=== PATIENT | female | born 1940 | race Caucasian/White ===

== ENCOUNTER 2018-03-18 13:15 | Observation (INO) ==
[2018-03-18 14:01] LABS: Basophils # 0.1 K/mcL (0.0-0.2); Basophils % 0.4 %; Eosinophils # 0.1 K/mcL (0.0-0.6); Eosinophils % 0.4 %; Hematocrit 47.7 % (35.3-44.9); Immature Granulocytes % 0.2 % (0-4); Lymphocytes # 2.1 K/mcL (0.6-4.6); Lymphocytes % 17.2 %; Mean Corpuscular HGB Conc 33.5 g/dL (31.6-35.5); Mean Corpuscular Hemoglobin 29.4 pg (28.0-33.3); Mean Corpuscular Volume 87.7 fL (83.0-100.0); Mean Platelet Volume 9.5 fL (9.4-12.4); Monocytes # 1.3 K/mcL (0.0-1.3); Monocytes % 10.7 %; Neutrophils # 8.7 K/mcL (1.6-8.9); Platelet Count 270 K/mcL (140-400); Red Blood Count 5.44 M/mcL (3.82-4.97); Red Cell Distribution Width 13.6 % (11.5-14.5); Segmented Neutrophils % 71.1 %
[2018-03-18 14:21] LABS: BUN/Creatinine Ratio 14 (6-26); Blood Urea Nitrogen 13 mg/dL (8-23); Calcium 9.6 mg/dL (8.6-10.3); Carbon Dioxide 27 mEq/L (23-29); Chloride 102 mEq/L (98-107); Glucose 158 mg/dL (70-105); Osmolality,Calculated 287 (280-300); Potassium 3.7 mEq/L (3.5-5.1); Sodium 137 mEq/L (136-145); eGFR For African Americans > 60 (> 60); eGFR For Non-African Americans > 60 (> 60)
[2018-03-18] MEDS ORDERED: Isovue-370 500 ML INFUS..BTL IV ONE (15:17)
--- NOTE | 2018-03-18 15:37 | Emergency Department Note ---
Disposition Clinical Impression: Lower abdominal pain, Colitis GI bleed Qualifiers: GI bleed type/associated pathology: unspecified gastrointestinal hemorrhage type Qualified Code(s): K92.2 - Gastrointestinal hemorrhage, unspecified Syncope Qualifiers: Syncope type: unspecified Qualified Code(s): R55 - Syncope and collapse Disposition: Admitted As Inpatient Condition: Good Time of Disposition: 20:15 GI Bleed HPI - General Chief complaint: ED GI Bleed Stated complaint: syncope, blood in stools Time Seen by Provider: 03/18/18 14:44 Nursing Notes Reviewed: Yes Vital Signs Reviewed: Yes - History of Present Illness HPI Narrative: 77-year-old female presents from home for evaluation of bleeding per rectum. Onset yesterday. She has had both spotting on the toilet paper as well as blood in her underwear and blood in the toilet bowl water. She notes intermittent lower abdominal cramping as well. She notes that she has been constipated but has not had a recent bowel movement. Her most recent bowel movements, however, were painless. Yesterday, she had a syncopal episode after standing up from the toilet. She lost consciousness and believes that she hit her head. PMH: CAD with ACS status post remote stent. Diabetes type 2. Abdominal surgical history: Remote hysterectomy. Anticoagulant: None Antiplatelet: Noncompliant with aspirin 81 mg by mouth daily. ROS: Positive: As above Negative: Fever, chills, nausea, vomiting, chest pain, palpitation, other abdominal pain, dysuria, vaginal bleeding, lightheadedness, neck pain, changes in vision, confusion, unilateral numbness/tingling/weakness. - Related Data Allergies Allergy/AdvReac Type Severity Reaction Status Date / Time No Known Allergies Allergy Verified 11/02/16 12:35 All systems ED: reviewed and negative except as stated. Review of Systems: As Per HPI Past Medical History - Past Medical History Medical history: Reports: diabetes, hypertension Psychiatric history: Reports: no psych history - Social History Smoking Status: Former smoker Smokeless Tobacco Status: No Alcohol use: Reports: none Drug use: Reports: none Physical Exam Vital Signs Reviewed General: Patient is alert, oriented, and in no acute distress. Head: atraumatic, normocephalic Eye: normal appearance, PERRL, EOMI, no scleral icterus, no conjunctival injection ENT: mucous membranes moist, normal external ear exam Neck: normal inspection, trachea midline, full ROM Chest: normal inspection, symmetric chest rise Respiratory: Good respiratory effort. Bilateral breath sounds are clear without wheezing, crackles, or rhonchi. Cardiovascular: Regular rate and rhythm. No clicks, rubs, gallops, or murmors. Normal heart sounds. Bilateral radial and posterior tibial pulses 2/4 equal. Abdomen: Bowel sounds present normoactive x-4 quadrants. Abdomen is soft, nondistended, and nontender. No guarding or rebound. No organomegaly noted. Echo exam: Medical Staff Credentialing Coordinator present. Prominent hemorrhoid present perirectally. Nose stool in rectal vault. FOBT submitted. Musculoskeletal: Spontaneously moving all extremities. No midline cervical spinous process tenderness. Skin: warm, dry, intact. Neuro: Alert and oriented x4. Sensation light touch intact and equal bilaterally. Strength 5/5 and equal in upper and lower extremity is. Psych: Patient's affect is appropriate for situation. Course Course Narrative: Patient is neurologically intact. Have low suspicion for intracranial abnormality. Even so, because it was a unwitnessed fall from sitting with positive loss of conscious, we will CT head and C-spine. Patient never had a colonoscopy. She does have lower abdominal cramping. Will CT abdomen pelvis without contrast. Because patient was syncopal, will also add EKG and chest x- ray as well as cardiac enzymes. CT head and C-spine show no acute abnormalities. Chest x-ray shows mild bibasilar atelectasis. EKG is unremarkable. Laboratory workup shows patient is not anemic. CT abdomen pelvis shows colitis. FOBT was positive. We will begin Flagyl and Cipro. I discussed the above with the patient. I also discussed admission for continued cardiac evaluation given her recent syncope. There are no agreement with this plan. I discussed the above with the admitting hospitalist, Dr. Lara, who agrees to accept the patient for continued evaluation of syncope as well as heated antibiotics and evaluation for colitis. EKG dated March 2018 at 13:57 interpreted as sinus rhythm with rate of 94. PA 148, QRS 76, QTC 389. Normal axis. Nonspecific ST-T changes. Compared to previous dated 10/14/2016 showing no acute ischemic changes comparison. Abdomen/Pelvis CT 03/18/18 15:17 IMPRESSION: 1. Circumferential long segment wall thickening of the colon centered at the splenic flexure. Findings most compatible with colitis. 2. Severe atherosclerotic disease. D/ / Anthony Alfaro MD / Anthony Alfaro MD Interpreting Provider: Anthony Alfaro MD Cervical Spine CT 03/18/18 15:17 IMPRESSION: No acute abnormality of the cervical spine. D/ / Darryl Mendoza MD / Darryl Mendoza MD Interpreting Provider: Darryl Mendoza MD Chest X-Ray 03/18/18 15:17 IMPRESSION: Mild right basilar atelectasis. D/ / Vero Bates MD / Vero Bates MD Interpreting Provider: Vero Bates MD Head CT 03/18/18 15:17 IMPRESSION: No acute intracranial abnormality. D/ / Gokul Black / Gokul Black Interpreting Provider: Gokul Black Vital Signs Temperature 98.6 F 03/18/18 13:21 Pulse Rate 103 03/18/18 13:21 Respiratory Rate 18 03/18/18 13:21 Blood Pressure 138/65 03/18/18 13:21 O2 Sat by Pulse Oximetry 97 03/18/18 13:21 Temperature 98.6 F 03/18/18 15:22 Pulse Rate 85 03/18/18 18:33 Respiratory Rate 16 03/18/18 19:47 Blood Pressure 114/64 03/18/18 19:47 O2 Sat by Pulse Oximetry 97 03/18/18 18:33 Oxygen Delivery Oxygen Delivery Room Air GI Bleed - Lab Data Result diagrams: 03/18/18 13:46 03/18/18 13:46 Lab Results 03/18/18 03/18/18 03/18/18 Range/Units 13:46 13:46 13:46 WBC 12.2 H (4.3-11.1) K/mcL RBC 5.44 H (3.82-4.97) M/mcL Hgb 16.0 H (11.5-15.4) g/dL Hct 47.7 H (35.3-44.9) % MCV 87.7 (83.0-100.0) fL MCH 29.4 (28.0-33.3) pg MCHC 33.5 (31.6-35.5) g/dL RDW 13.6 (11.5-14.5) % Plt Count 270 (140-400) K/mcL MPV 9.5 (9.4-12.4) fL Immature Gran % 0.2 (0-4) % Seg Neutrophils % 71.1 % Lymphocytes % 17.2 % Monocytes % 10.7 % Eosinophils % 0.4 % Basophils % 0.4 % Neutrophils # 8.7 (1.6-8.9) K/mcL Lymphocytes # 2.1 (0.6-4.6) K/mcL Monocytes # 1.3 (0.0-1.3) K/mcL Eosinophils # 0.1 (0.0-0.6) K/mcL Basophils # 0.1 (0.0-0.2) K/mcL PT (9.4-12.1) Seconds INR Sodium 137 (136-145) mEq/L Potassium 3.7 (3.5-5.1) mEq/L Chloride 102 (98-107) mEq/L Carbon Dioxide 27 (23-29) mEq/L BUN 13 (8-23) mg/dL Creatinine 0.90 (0.60-1.20) mg/dL Est GFR ( Amer) > 60 (> 60) Est GFR (Non-Af Amer) > 60 (> 60) BUN/Creatinine Ratio 14 (6-26) Glucose 158 H (70-105) mg/dL Calculated Osmolality 287 (280-300) Calcium 9.6 (8.6-10.3) mg/dL Total Bilirubin (0.3-1.0) mg/dL Direct Bilirubin (0.0-0.2) mg/dL Indirect Bilirubin (0.0-1.2) mg/dL AST (13-39) Units/L ALT (7-52) Units/L Alkaline Phosphatase (34-104) Units/L Troponin I (< 0.04) ng/mL Serum Total Protein (6.4-8.9) g/dL Albumin (3.5-5.7) g/dL Globulin (2.4-3.5) g/dL Albumin/Globulin Ratio (1.1-2.2) Stool Occult Blood (Negative) Blood Type O POSITIVE Antibody Screen NEGATIVE 03/18/18 03/18/18 03/18/18 Range/Units 13:46 13:46 15:30 WBC (4.3-11.1) K/mcL RBC (3.82-4.97) M/mcL Hgb (11.5-15.4) g/dL Hct (35.3-44.9) % MCV (83.0-100.0) fL MCH (28.0-33.3) pg MCHC (31.6-35.5) g/dL RDW (11.5-14.5) % Plt Count (140-400) K/mcL MPV (9.4-12.4) fL Immature Gran % (0-4) % Seg Neutrophils % % Lymphocytes % % Monocytes % % Eosinophils % % Basophils % % Neutrophils # (1.6-8.9) K/mcL Lymphocytes # (0.6-4.6) K/mcL Monocytes # (0.0-1.3) K/mcL Eosinophils # (0.0-0.6) K/mcL Basophils # (0.0-0.2) K/mcL PT 11.7 (9.4-12.1) Seconds INR 1.0 Sodium (136-145) mEq/L Potassium (3.5-5.1) mEq/L Chloride (98-107) mEq/L Carbon Dioxide (23-29) mEq/L BUN (8-23) mg/dL Creatinine (0.60-1.20) mg/dL Est GFR ( Amer) (> 60) Est GFR (Non-Af Amer) (> 60) BUN/Creatinine Ratio (6-26) Glucose (70-105) mg/dL Calculated Osmolality (280-300) Calcium (8.6-10.3) mg/dL Total Bilirubin 0.8 (0.3-1.0) mg/dL Direct Bilirubin 0.2 (0.0-0.2) mg/dL Indirect Bilirubin 0.6 (0.0-1.2) mg/dL AST 17 (13-39) Units/L ALT 21 (7-52) Units/L Alkaline Phosphatase 85 (34-104) Units/L Troponin I < 0.03 (< 0.04) ng/mL Serum Total Protein 7.2 (6.4-8.9) g/dL Albumin 4.5 (3.5-5.7) g/dL Globulin 2.7 (2.4-3.5) g/dL Albumin/Globulin Ratio 1.7 (1.1-2.2) Stool Occult Blood Positive A (Negative) Blood Type Antibody Screen
[2018-03-18 16:36] LABS: Prothrombin Time 11.7 Seconds (9.4-12.1)
[2018-03-18 16:45] LABS: Alanine Aminotransferase 21 Units/L (7-52); Albumin 4.5 g/dL (3.5-5.7); Albumin/Globulin Ratio 1.7 (1.1-2.2); Alkaline Phosphatase 85 Units/L (34-104); Aspartate Amino Transferase 17 Units/L (13-39); Bilirubin,Direct 0.2 mg/dL (0.0-0.2); Bilirubin,Indirect 0.6 mg/dL (0.0-1.2); Bilirubin,Total 0.8 mg/dL (0.3-1.0); Globulin 2.7 g/dL (2.4-3.5); Total Protein 7.2 g/dL (6.4-8.9); Troponin I < 0.03 ng/mL (< 0.04)
--- NOTE | 2018-03-18 17:29 | Emergency Department Note ---
Disposition Clinical Impression: GI bleed Qualifiers: GI bleed type/associated pathology: unspecified gastrointestinal hemorrhage type Qualified Code(s): K92.2 - Gastrointestinal hemorrhage, unspecified Syncope Qualifiers: Syncope type: unspecified Qualified Code(s): R55 - Syncope and collapse Disposition: Admitted As Inpatient Referrals: Roro Reese CNP [Primary Care Provider] - General Adult HPI - General Chief complaint: ED GI Bleed Stated complaint: syncope, blood in stools Time Seen by Provider: 03/18/18 14:44 - History of Present Illness Pain Scale: 9 - Related Data Allergies Allergy/AdvReac Type Severity Reaction Status Date / Time No Known Allergies Allergy Verified 11/02/16 12:35 Past Medical History - Past Medical History Medical history: Reports: diabetes, hypertension Psychiatric history: Reports: no psych history - Social History Smoking Status: Former smoker Smokeless Tobacco Status: No Alcohol use: Reports: none Drug use: Reports: none Course Vital Signs Temperature 98.6 F 03/18/18 13:21 Pulse Rate 103 03/18/18 13:21 Respiratory Rate 18 03/18/18 13:21 Blood Pressure 138/65 03/18/18 13:21 O2 Sat by Pulse Oximetry 97 03/18/18 13:21 Temperature 98.6 F 03/18/18 15:22 Pulse Rate 89 03/18/18 15:47 Respiratory Rate 16 03/18/18 15:47 Blood Pressure 135/73 03/18/18 15:47 O2 Sat by Pulse Oximetry 97 03/18/18 15:47 Oxygen Delivery Oxygen Delivery Room Air Medical Decision Making - Lab Data Result diagrams: 03/18/18 13:46 03/18/18 13:46 Lab Results 03/18/18 03/18/18 03/18/18 Range/Units 13:46 13:46 13:46 WBC 12.2 H (4.3-11.1) K/mcL RBC 5.44 H (3.82-4.97) M/mcL Hgb 16.0 H (11.5-15.4) g/dL Hct 47.7 H (35.3-44.9) % MCV 87.7 (83.0-100.0) fL MCH 29.4 (28.0-33.3) pg MCHC 33.5 (31.6-35.5) g/dL RDW 13.6 (11.5-14.5) % Plt Count 270 (140-400) K/mcL MPV 9.5 (9.4-12.4) fL Immature Gran % 0.2 (0-4) % Seg Neutrophils % 71.1 % Lymphocytes % 17.2 % Monocytes % 10.7 % Eosinophils % 0.4 % Basophils % 0.4 % Neutrophils # 8.7 (1.6-8.9) K/mcL Lymphocytes # 2.1 (0.6-4.6) K/mcL Monocytes # 1.3 (0.0-1.3) K/mcL Eosinophils # 0.1 (0.0-0.6) K/mcL Basophils # 0.1 (0.0-0.2) K/mcL PT (9.4-12.1) Seconds INR Sodium 137 (136-145) mEq/L Potassium 3.7 (3.5-5.1) mEq/L Chloride 102 (98-107) mEq/L Carbon Dioxide 27 (23-29) mEq/L BUN 13 (8-23) mg/dL Creatinine 0.90 (0.60-1.20) mg/dL Est GFR ( Amer) > 60 (> 60) Est GFR (Non-Af Amer) > 60 (> 60) BUN/Creatinine Ratio 14 (6-26) Glucose 158 H (70-105) mg/dL Calculated Osmolality 287 (280-300) Calcium 9.6 (8.6-10.3) mg/dL Total Bilirubin (0.3-1.0) mg/dL Direct Bilirubin (0.0-0.2) mg/dL Indirect Bilirubin (0.0-1.2) mg/dL AST (13-39) Units/L ALT (7-52) Units/L Alkaline Phosphatase (34-104) Units/L Troponin I (< 0.04) ng/mL Serum Total Protein (6.4-8.9) g/dL Albumin (3.5-5.7) g/dL Globulin (2.4-3.5) g/dL Albumin/Globulin Ratio (1.1-2.2) Stool Occult Blood (Negative) Blood Type O POSITIVE Antibody Screen NEGATIVE 03/18/18 03/18/18 03/18/18 Range/Units 13:46 13:46 15:30 WBC (4.3-11.1) K/mcL RBC (3.82-4.97) M/mcL Hgb (11.5-15.4) g/dL Hct (35.3-44.9) % MCV (83.0-100.0) fL MCH (28.0-33.3) pg MCHC (31.6-35.5) g/dL RDW (11.5-14.5) % Plt Count (140-400) K/mcL MPV (9.4-12.4) fL Immature Gran % (0-4) % Seg Neutrophils % % Lymphocytes % % Monocytes % % Eosinophils % % Basophils % % Neutrophils # (1.6-8.9) K/mcL Lymphocytes # (0.6-4.6) K/mcL Monocytes # (0.0-1.3) K/mcL Eosinophils # (0.0-0.6) K/mcL Basophils # (0.0-0.2) K/mcL PT 11.7 (9.4-12.1) Seconds INR 1.0 Sodium (136-145) mEq/L Potassium (3.5-5.1) mEq/L Chloride (98-107) mEq/L Carbon Dioxide (23-29) mEq/L BUN (8-23) mg/dL Creatinine (0.60-1.20) mg/dL Est GFR ( Amer) (> 60) Est GFR (Non-Af Amer) (> 60) BUN/Creatinine Ratio (6-26) Glucose (70-105) mg/dL Calculated Osmolality (280-300) Calcium (8.6-10.3) mg/dL Total Bilirubin 0.8 (0.3-1.0) mg/dL Direct Bilirubin 0.2 (0.0-0.2) mg/dL Indirect Bilirubin 0.6 (0.0-1.2) mg/dL AST 17 (13-39) Units/L ALT 21 (7-52) Units/L Alkaline Phosphatase 85 (34-104) Units/L Troponin I < 0.03 (< 0.04) ng/mL Serum Total Protein 7.2 (6.4-8.9) g/dL Albumin 4.5 (3.5-5.7) g/dL Globulin 2.7 (2.4-3.5) g/dL Albumin/Globulin Ratio 1.7 (1.1-2.2) Stool Occult Blood Positive A (Negative) Blood Type Antibody Screen Attestation Statement - Attestation Attestation: I examined this patient and my medical decision-making was reviewed with the Resident Physician. I agree with the documented findings, disposition and treatment plan as described except to the extent set forth below. 77 year old female presnte to the ED with compalnits of syncoe and GI bleed and states that she does have large hemmorrhoids that bleed at times and it appears that she is (+) for hemmoccult. Her vital ssigns are stable. PAtient did have a syncopal episode and states that she did hit her head and may have injured her neck a few days ago when she was on the toilet but states she was not strainign when it happened but she was trying to stand up. WE will obtain CT of head, neck , abp and admit to medicine.
[2018-03-18] MEDS ORDERED: MetroNIDAZOLE 500 MG/100 ML 500 MG/100 ML BAG IVPB ONE (17:41)
--- NOTE | 2018-03-18 19:22 | Internal Med History&Physical ---
Date of Encounter: 03/18/18 Time of Encounter: 19:22 Internal Medicine - H&P: HPI History of present illness: Ms. Logan is a 77 year old female Past Med Surg Social Fam HX - Past Medical History Medical history: diabetes, hypertension Psychiatric history: no psych history - Social History Smoking Status: Former smoker Smokeless Tobacco Status: No Alcohol use: none Drug use: none Internal Medicine - H&P: Meds 3 Allergy/AdvReac Type Severity Reaction Status Date / Time No Known Allergies Allergy Verified 11/02/16 12:35 All Systems PM: A 10-system review of systems was performed and is negative for pertinent findings except as documented above in the HPI. - Constitutional Vitals: Temp Pulse Resp BP Pulse Ox 98.6 F 85 18 121/69 97 03/18/18 15:22 03/18/18 18:33 03/18/18 18:33 03/18/18 18:33 03/18/18 18:33 Internal Med - H&P Results - Labs CBC & Chem 7: 03/18/18 13:46 03/18/18 13:46 Labs: Short CBC 03/18/18 Range/Units 13:46 WBC 12.2 H (4.3-11.1) K/mcL Hgb 16.0 H (11.5-15.4) g/dL Hct 47.7 H (35.3-44.9) % Plt Count 270 (140-400) K/mcL Neutrophils # 8.7 (1.6-8.9) K/mcL BMP 03/18/18 13:46 Sodium 137 Potassium 3.7 Chloride 102 Carbon Dioxide 27 BUN 13 Creatinine 0.90 Glucose 158 H Calcium 9.6 Cardiac Enzymes 03/18/18 Range/Units 13:46 Troponin I < 0.03 (< 0.04) ng/mL Liver Function 03/18/18 Range/Units 13:46 Total Bilirubin 0.8 (0.3-1.0) mg/dL Direct Bilirubin 0.2 (0.0-0.2) mg/dL AST 17 (13-39) Units/L ALT 21 (7-52) Units/L Alkaline Phosphatase 85 (34-104) Units/L Albumin 4.5 (3.5-5.7) g/dL - Impressions ITS Impressions Abdomen/Pelvis CT 07/08/18 15:17 IMPRESSION: 1. Circumferential long segment wall thickening of the colon centered at the splenic flexure. Findings most compatible with colitis. 2. Severe atherosclerotic disease. D/ / Anthony Alfaro MD / Anthony Alfaro MD Interpreting Provider: Anthony Alfaro MD Cervical Spine CT 03/18/18 15:17 IMPRESSION: No acute abnormality of the cervical spine. D/ / Darryl Mendoza MD / Darryl Mendoza MD Interpreting Provider: Darryl Mendoza MD Chest X-Ray 03/18/18 15:17 IMPRESSION: Mild right basilar atelectasis. D/ / Vero Bates MD / Vero Bates MD Interpreting Provider: Vero Bates MD Head CT 03/18/18 15:17 IMPRESSION: No acute intracranial abnormality. D/ / Gokul Black / Gokul Black Interpreting Provider: Gokul Black - Time Spent With Patient Total time spent is greater than 50% in coordination of care (as documented) at patient's floor/unit and/or counseling patient:
[2018-03-18] MEDS ORDERED: Naloxone 0.4 MG/ML INJ IVP PRN (19:39)
[2018-03-18] MEDS ORDERED: D5% in Water 1,000 ML IVC PRN (19:42)
[2018-03-18] MEDS ORDERED: Dextrose Gel 15 GM/37.5 ML TUBE PO PRN ×2 (19:42)
[2018-03-18] MEDS ORDERED: *HR* Dextrose 50 % in Water (Syg) 50 ML SYRINGE IVP PRN (19:42)
[2018-03-18] MEDS ORDERED: 0.9 % Sodium Chloride 500 ML IVC ONE (19:43)
[2018-03-18] MEDS ORDERED: 0.9 % Sodium Chloride 1,000 ML IVC SCH (21:15)
--- NOTE | 2018-03-18 21:37 | Internal Med History&Physical ---
Date of Encounter: 03/18/18 Time of Encounter: 21:33 Internal Medicine - H&P: HPI Chief complaint: Bloody stool Admitted From: Home Plans for Post Hospital Care: Home History of present illness: Ms. Logan is a 77 year old female Patient is seen and evaluated at the bedside with family members. 77-year-old female with medical history of hypertension, diabetes mellitus on oral hypoglycemic agents, complicated by neuropathy presented to the emergency room in complaining of a family members with complaints of bright red blood per rectum since yesterday. The patient is said to be independent lives alone in her usual state of health until yesterday afternoon during a libertarian when she had an episode of syncope after passing a large amount of bright red blood per rectum. The patient reports associated abdominal cramping prior to each episode. She has had about 4 episodes since onset. She has not had any episodes in the hospital. She denies fever or chills, she denies diarrhea, she however reports that she is usually constipated. She has never had a colonoscopy. She reports she was aware at the time she was having a syncopal patient attempted to get to the door before she passed out. She denies chest pain, palpitations, dizziness, shortness of breath, blurry vision prior to passing out. She has no had any further episodes. She has never had a cardiac workup done in the past. She denies any other symptoms. She reports a history of hemorrhoids, and has not been taking any routine is at home. She is noncompliant with baby aspirin. Medical history is as above, social history is unremarkable. Patient has a power of staff attorney who is admitted at the bedside, she also has a living will and he said to be DO NOT RESUSCITATE and DO NOT INTUBATE. Workup in the ER was unremarkable, patient with hemoglobin of 16 likely dehydrated with hemoconcentration. Hemodynamically stable. Abdomen CAT scan showed severe atherosclerotic disease and colitis. Past Med Surg Social Fam HX - Past Medical History Medical history: diabetes, hypertension Psychiatric history: no psych history - Social History Smoking Status: Former smoker Smokeless Tobacco Status: No Alcohol use: none Drug use: none Internal Medicine - H&P: Meds 3 Allergy/AdvReac Type Severity Reaction Status Date / Time No Known Allergies Allergy Verified 11/02/16 12:35 All Systems PM: A 10-system review of systems was performed and is negative for pertinent findings except as documented above in the HPI. - Constitutional Constitutional: as per HPI - EENT Eyes: as per HPI Ears: as per HPI Nose, mouth and throat: as per HPI - Cardiovascular Cardiovascular ROS IM: as per HPI - Respiratory Respiratory: as per HPI - Gastrointestinal Gastrointestinal: as per HPI - Genitourinary Genitourinary: as per HPI - Musculoskeletal Musculoskeletal ROS IM: as per HPI - Integumentary Integumentary IM: as per HPI - Neurological Neurological ROS: as per HPI - Hematologic/Lymphatic Hematologic/Lymphatic: as per HPI - Constitutional Vitals: Temp Pulse Resp BP Pulse Ox 98.5 F 85 16 113/67 94 03/18/18 21:28 03/18/18 21:28 03/18/18 21:28 03/18/18 21:28 03/18/18 21:28 General appearance: Present: A&O X 3, pleasant, no acute distress - Head Head exam: Present: atraumatic, normocephalic - Eye Eye exam: Present: PERRL, conjuntiva pink, sclera anicteric Pupils: Present: PERRL - Neck Neck exam general surgery: Present: supple, trachea midline. Absent: lymphadenopathy - Respiratory Respiratory exam: Present: CTAB. Absent: accessory muscle use, rales, rhonchi, wheezes - Cardiovascular Cardiovascular exam: Present: RRR, +S1, +S2. Absent: diastolic murmur, gallop, rubs, systolic murmur - GI/Abdominal GI/Abdominal exam: Present: normal bowel sounds, soft, no peritoneal signs. Absent: distended, tenderness - Extremities Exam Extremities exam: Present: warm, radial pulses palpable and symmetrical. Absent : calf tenderness, cyanotic, pedal edema - Neurological Exam Neurological exam: Present: alert, CN II-XII intact, oriented X3, no focal deficits. Absent: pronater drift, facial droop, speech deficit - Skin Skin exam: Present: dry, intact Internal Med - H&P Results - Labs CBC & Chem 7: 03/18/18 13:46 03/18/18 13:46 - Assessment and plan (1) Colitis Current Visit: Yes Status: Acute Assessment and plan: Patient with colitis Likely ischemic gearing age, presentation, and associated bleeding. Continue IV antibiotics Clear liquid diet only Consult gastroenterology -morning team to call. BUN/creatinine within normal limit Check lactate. (2) Hypertension Current Visit: Yes Status: Chronic Assessment and plan: Blood pressure currently acceptable for age. Resume home medications after confirmation. Qualifiers: Hypertension type: essential hypertension Qualified Code(s): I10 - Essential (primary) hypertension (3) Diabetes mellitus Current Visit: Yes Status: Chronic Assessment and plan: patient on metformin only. Check A1c with morning labs Fingersticks before meals at bedtime Sliding-scale insulin only for now. Qualifiers: Diabetes mellitus type: type 2 Diabetes mellitus group home insulin use: without group home use Diabetes mellitus complication status: with neurologic complications Diabetes mellitus complication detail: with unspecified neuropathy Qualified Code(s): E11.40 - Type 2 diabetes mellitus with diabetic neuropathy, unspecified (4) GI bleed Current Visit: Yes Status: Acute Assessment and plan: Likely lower GI bleed, likely ischemic, rule out diverticular bleed. Abdomen CAT scan with contrast shows colitis in the splenic flexure Hemoglobin currently stable Type and screen done Monitor hemoglobin GI evaluation non-emergently in the morning Liquid diet only for now Qualifiers: GI bleed type/associated pathology: unspecified gastrointestinal hemorrhage type Qualified Code(s): K92.2 - Gastrointestinal hemorrhage, unspecified (5) Syncope Current Visit: Yes Status: Acute Assessment and plan: Likely vasovagal syncope. Patient with no prior cardiology workup in the past Obtain echocardiogram Obtain carotid Doppler ultrasound Place on telemetry Troponin negative, EKG unremarkable, no chest pain and head CT unremarkable Qualifiers: Syncope type: unspecified Qualified Code(s): R55 - Syncope and collapse (6) DVT prophylaxis Current Visit: Yes Status: Acute Assessment and plan: SCDs due to GI bleed - Time Spent With Patient Total time spent is greater than 50% in coordination of care (as documented) at patient's floor/unit and/or counseling patient:
[2018-03-18] MEDS: Insulin LISPRO 300 UNITS/3 ML VIAL SQ SCH (23:24)
[2018-03-18] MEDS: MetroNIDAZOLE 500 MG/100 ML 500 MG/100 ML BAG IVPB SCH (23:27)
[2018-03-19 04:37] LABS: Basophils # 0.1 K/mcL (0.0-0.2); Basophils % 0.4 %; Eosinophils # 0.1 K/mcL (0.0-0.6); Hemoglobin 14.6 g/dL (11.5-15.4); Immature Granulocytes % 0.3 % (0-4); Lymphocytes # 1.9 K/mcL (0.6-4.6); Lymphocytes % 16.2 %; Mean Corpuscular HGB Conc 33.2 g/dL (31.6-35.5); Mean Corpuscular Hemoglobin 29.4 pg (28.0-33.3); Mean Corpuscular Volume 88.7 fL (83.0-100.0); Mean Platelet Volume 9.7 fL (9.4-12.4); Monocytes % 8.8 %; Neutrophils # 8.4 K/mcL (1.6-8.9); Platelet Count 250 K/mcL (140-400); Red Blood Count 4.96 M/mcL (3.82-4.97); Red Cell Distribution Width 13.7 % (11.5-14.5); Segmented Neutrophils % 73.3 %
[2018-03-19] MEDS ORDERED: metroNIDAZOLE 500 MG TABLET PO SCH (09:00)
[2018-03-19] MEDS: MetroNIDAZOLE 500 MG/100 ML 500 MG/100 ML BAG IVPB SCH ×2 (09:03→16:00)
[2018-03-19] MEDS: Insulin LISPRO 300 UNITS/3 ML VIAL SQ SCH ×4 (09:12→22:05)
[2018-03-19] MEDS: Acetaminophen 325 MG TABLET PO PRN ×2 (09:17→16:01)
[2018-03-19] MEDS ORDERED: *HR* LORazepam 0.5 MG TABLET PO ONE (10:01)
--- NOTE | 2018-03-19 11:45 | Internal Med Progress Note ---
Date of Encounter: 03/19/18 Time of Encounter: 11:42 - Assessment and plan (1) GI bleed Current Visit: Yes Status: Acute Assessment and plan: Likely lower GI bleed, likely ischemic, rule out diverticular bleed. Abdomen CAT scan with contrast shows colitis in the splenic flexure Hemoglobin currently stable Type and screen done Monitor hemoglobin GI evaluation non-emergently in the morning Liquid diet only for now 03/19-patient had another episode of bleeding early this morning. She has now had multiple bright red blood per rectum stools. Most likely etiology at this point still points to hemorrhoidal bleeding however like mentioned before we need to rule out ischemic colitis. Regardless the patient has been consulted with gastroenterology and the plan is for her to go through a colonoscopy tomorrow. We will start the bowel prep tonight and for now I will keep her on liquid diet. I will also check her H&H every 6-8 hours today. I will also start her on twice a day PPI for now. Qualifiers: GI bleed type/associated pathology: unspecified gastrointestinal hemorrhage type Qualified Code(s): K92.2 - Gastrointestinal hemorrhage, unspecified (2) Syncope Current Visit: Yes Status: Acute Assessment and plan: Likely vasovagal syncope. Patient with no prior cardiology workup in the past Obtain echocardiogram Obtain carotid Doppler ultrasound Place on telemetry Troponin negative, EKG unremarkable, no chest pain and head CT unremarkable 03/19-agree that most likely etiology being vasovagal syncope. If the above- mentioned workup is negative can DC telemetry. I will keep her on the telemetry at least and we are monitoring her H&H more consistently. Qualifiers: Syncope type: unspecified Qualified Code(s): R55 - Syncope and collapse (3) Colitis Current Visit: Yes Status: Acute Assessment and plan: Patient with colitis Likely ischemic gearing age, presentation, and associated bleeding. Continue IV antibiotics Clear liquid diet only Consult gastroenterology -morning team to call. BUN/creatinine within normal limit Check lactate. 03/19 ruling out ischemic colitis. Colonoscopy tomorrow will follow results. Continue to maintain hydration. She appears euvolemic at this time. (4) Hypertension Current Visit: Yes Status: Chronic Qualifiers: Hypertension type: essential hypertension Qualified Code(s): I10 - Essential (primary) hypertension (5) Diabetes mellitus Current Visit: Yes Status: Chronic Assessment and plan: Sliding-scale insulin only for now. Continue serial Accu-Cheks Qualifiers: Diabetes mellitus type: type 2 Diabetes mellitus correction insulin use: without correction use Diabetes mellitus complication status: with neurologic complications Diabetes mellitus complication detail: with unspecified neuropathy Qualified Code(s): E11.40 - Type 2 diabetes mellitus with diabetic neuropathy, unspecified (6) DVT prophylaxis Current Visit: Yes Status: Acute Assessment and plan: SCDs due to GI bleed - Time Spent With Patient Total time spent is greater than 50% in coordination of care (as documented) at patient's floor/unit and/or counseling patient: Greater than 35 minutes - Subjective Interval history: Patient had another episode of bright red blood per rectum this morning he did this will also associate with the passage of some clots. Patient defines it as painless bleeding and this was mixed with stools. She has had history of hemorrhoids but never had colonoscopy. Patient's family was also present next to bedside. - Constitutional Vitals: Temp Pulse Resp BP Pulse Ox 98.2 F 83 14 105/63 97 03/19/18 11:05 03/19/18 11:05 03/19/18 11:05 03/19/18 11:05 03/19/18 11:05 General appearance: Present: A&O X 3, pleasant, no acute distress Exam: GENERAL: Alert, moderate distress, cooperative EYES: PERRLA, EOMI EARS: External ears normal, canals clear OROPHARYNX: Lips, mucosa, and tongue normal. Teeth and gums normal. Oropharynx normal. NECK: No jugulovenous distention, No carotid bruits, Carotid pulse normal contour, Supple LUNGS: Lungs clear to auscultation, Good diaphragmatic excursion CARDIAC: Normal S1 and S2; no rubs, murmurs, or gallops ABDOMEN: Abdomen soft, non-tender, BS normal, No masses or organomegaly EXTREMITIES: Extremities normal, no deformities, edema, clubbing or skin discoloration. Good capillary refill., No ulcers Rest of the exam is non contributory Internal Medicine: Result - Labs CBC & Chem 7: 03/19/18 04:02 03/18/18 13:46 Labs: Short CBC 03/19/18 Range/Units 04:02 WBC 11.4 H (4.3-11.1) K/mcL Hgb 14.6 (11.5-15.4) g/dL Hct 44.0 (35.3-44.9) % Plt Count 250 (140-400) K/mcL Neutrophils # 8.4 (1.6-8.9) K/mcL - ABG Interpretation ABG results: PT/INR, D-dimer PT 11.7 Seconds (9.4-12.1) 03/18/18 13:46 Consult Discharge Plan - Plan Referrals: Roro Reese, FELTMAKER [Primary Care Provider] -
[2018-03-19 12:27] LABS: Hematocrit 41.7 % (35.3-44.9); Hemoglobin 13.9 g/dL (11.5-15.4)
--- NOTE | 2018-03-19 12:41 | Gastroenterology Consult Note ---
Date of Encounter: 03/19/18 Time of Encounter: 11:15 - Assessment and plan (1) GI bleed Current Visit: Yes Status: Acute Assessment and plan: Hgb 16 on admission and 14.6 this AM. Pt reports large amount of blood in bowl. Likley secondary to ischemic colitis. Plan for colonoscopy tomorrow. Clear liquid diet today, no red or purple. NPO at midnight. If unable tolerate NuLytely please use MiraLAX prep. If not clear by 6 AM, give 2 tap water enemas. Qualifiers: GI bleed type/associated pathology: unspecified gastrointestinal hemorrhage type Qualified Code(s): K92.2 - Gastrointestinal hemorrhage, unspecified (2) Colitis Current Visit: Yes Status: Acute Assessment and plan: Likely ischemic colitis, plan for colonoscopy tomorrow. (3) Syncope Current Visit: Yes Status: Acute Qualifiers: Syncope type: unspecified Qualified Code(s): R55 - Syncope and collapse (4) Lower abdominal pain Current Visit: Yes Status: Acute - Time Spent With Patient Total time spent is greater than 50% in coordination of care (as documented) at patient's floor/unit and/or counseling patient: GI History of Present Illness - Data of Consult Patient: new to practice Consult date: 03/19/18 Requesting Physician: Rani Arboleda - Consult Narrative Reason for consult: Lower GI Bleed History of present illness: Ms. Logan is a 77 year old female with PMHx of DM, HTN who presents with complaints of BRBPR that started the day prior to admission. She had an episode of syncope after passing a large amount of BRBPR. She reports 4 episodes of BRBPR prior to admission. She complains of abdominal cramping prior to each episode. She has never had colonoscopy. She denies fever, chills, chest pain, shortness of breath. CT A/P with circumferential long segment wall thickening of the colon centered at the splenic flexure most compatible with colitis. Procedures: None NSAIDs: None Anticoagulation: None Past Med Surg Social Fam HX - Past Medical History Medical history: diabetes, hypertension Psychiatric history: no psych history - Past Surgical History Surgical History: cholecystectomy, hysterectomy - Social History Smoking Status: Never smoker Smokeless Tobacco Status: No Alcohol use: none Drug use: none - Gastrointestinal Gastrointestinal: Present: as per HPI - Constitutional Constitutional: as per HPI - EENT Eyes: as per HPI Ears: Present: as per HPI Nose, mouth and throat: Present: as per HPI - Cardiovascular Cardiovascular ROS: Present: as per HPI - Respiratory Respiratory IM: Present: as per HPI - Genitourinary Genitourinary: Absent: change in color, Urinary frequency - Neurological ROS Neurological GI: Present: as per HPI - Hematologic/Lymphatic Hematologic/Lymphatic pediatric: Present: as per HPI - Musculoskeletal Musculoskeletal ROS GI: Present: as per HPI - Integumentary Integumentary GI: Present: as per HPI - Psychiatric ROS Psychiatric GI: Present: as per HPI - Endocrine Endocrine IM: Present: as per HPI - Constitutional Vitals: Temp Pulse Resp BP Pulse Ox 98.2 F 83 14 105/63 97 03/19/18 11:05 03/19/18 11:05 03/19/18 11:05 03/19/18 11:05 03/19/18 11:05 General appearance: Present: cooperative, A&O X 3, no acute distress, answers questions appropriately - Head Head exam: Present: atraumatic, normocephalic - Eye Eye exam: Present: normal appearance, sclera anicteric - ENT ENT exam: Present: mucous membranes moist - Neck Neck exam general surgery: Present: normal inspection, trachea midline - Respiratory Respiratory exam: Present: CTAB. Absent: rales, rhonchi, wheezes - Cardiovascular Cardiovascular exam: Present: RRR, +S1, +S2 - GI/Abdominal GI/Abdominal exam: Present: soft, tenderness (Mild LLQ and LUQ tenderness), no peritoneal signs. Absent: distended, firm, guarding - Rectal Rectal exam: Present: deferred - Extremities Exam Extremities exam: Present: warm - Neurological Exam Neurological exam: Present: no focal deficits - Psychiatric Psychiatric exam: Present: normal affect, normal mood - Skin Skin exam: Present: dry, intact, normal color, warm Results - Labs CBC & Chem 7: 03/19/18 11:36 03/18/18 13:46 Labs: Last Result Calcium 9.6 mg/dL (8.6-10.3) 03/18/18 13:46 Troponin I < 0.03 ng/mL (< 0.04) 03/18/18 13:46 Stool Occult Blood Positive (Negative) A 03/18/18 15:30 Entire Visit Hgb 13.9 g/dL (11.5-15.4) 03/19/18 11:36 Hct 41.7 % (35.3-44.9) 03/19/18 11:36 PT 11.7 Seconds (9.4-12.1) 03/18/18 13:46 Total Bilirubin 0.8 mg/dL (0.3-1.0) 03/18/18 13:46 AST 17 Units/L (13-39) 03/18/18 13:46 ALT 21 Units/L (7-52) 03/18/18 13:46 - ABG ABG results: PT/INR, D-dimer PT 11.7 Seconds (9.4-12.1) 03/18/18 13:46 Consult Discharge Plan - Plan Referrals: Roro Reese, PRORATION CLERK [Primary Care Provider] -
[2018-03-19 15:10] LABS: Hematocrit 40.1 % (35.3-44.9); Hemoglobin 12.9 g/dL (11.5-15.4)
[2018-03-19 15:37] LABS: Bilirubin,Urine Negative (Negative); Blood,Urine Negative (Negative); Clarity,Urine Clear (Clear); Color,Urine Yellow (Yellow); Glucose,Urine (UA) 250 mg/dL (Normal); Ketones,Urine Negative (Negative); Leukocyte Esterase,Urine Negative (Negative); Nitrite,Urine Negative (Negative); Protein,Urine Negative (Neg-Trace); Specific Gravity,Urine 1.008 (1.010-1.025); Urobilinogen,Urine Normal (Normal)
[2018-03-19] MEDS ORDERED: SODIUM CHLORIDE/NAHCO3/KCL/PEG 4,000 ML SOLN.RECON PO ONE (17:00)
[2018-03-19] MEDS ORDERED: *HR* LORazepam 0.5 MG TABLET PO PRN (18:02)
--- NOTE | 2018-03-19 19:00 | Electrocardiograph Report ---
[address] [address] Test Date: 2018-03-18 Pat Name: Zoie Logan Department: 104 Room: 3A46 Gender: F Grad Intern: AM : 1940 Requested By: [id number] Order Number: [id number] Reading MD: Manjit King Measurements Intervals [place] Rate: 94 P: 67 [place]: 148 QRS: 43 QRSD: 76 T: 72 QT: 337 QTc: 389 Interpretive Statements SINUS RHYTHM LOW QRS VOLTAGE IN PRECORDIAL LEADS Electronically Signed On 03-19-2018 18:58:40 EDT by Manjit King
[2018-03-19] MEDS ORDERED: Ondansetron 4 MG/2 ML VIAL IVP PRN (20:30)
[2018-03-19] MEDS: Gabapentin 400 MG CAPSULE PO SCH ×2 (21:45→22:06)
[2018-03-20] MEDS: MetroNIDAZOLE 500 MG/100 ML 500 MG/100 ML BAG IVPB SCH ×3 (00:14→13:00)
[2018-03-20 06:59] LABS: Hematocrit 48.1 % (35.3-44.9)
[2018-03-20 07:27] LABS: Hemoglobin 15.7 g/dL (11.5-15.4)
[2018-03-20] MEDS ORDERED: amLODIPine 5 MG TABLET PO SCH (09:00)
[2018-03-20] MEDS ORDERED: *HR* LORazepam 2 MG/ML VIAL IVP ONE (09:37)
--- NOTE | 2018-03-20 09:45 | Internal Med Progress Note ---
Date of Encounter: 03/20/18 Time of Encounter: 09:45 - Assessment and plan (1) GI bleed Current Visit: Yes Status: Acute Assessment and plan: Likely lower GI bleed, likely ischemic, rule out diverticular bleed. Abdomen CAT scan with contrast shows colitis in the splenic flexure Hemoglobin currently stable Type and screen done Monitor hemoglobin GI evaluation non-emergently in the morning Liquid diet only for now 03/19-patient had another episode of bleeding early this morning. She has now had multiple bright red blood per rectum stools. Most likely etiology at this point still points to hemorrhoidal bleeding however like mentioned before we need to rule out ischemic colitis. Regardless the patient has been consulted with gastroenterology and the plan is for her to go through a colonoscopy tomorrow. We will start the bowel prep tonight and for now I will keep her on liquid diet. I will also check her H&H every 6-8 hours today. I will also start her on twice a day PPI for now. 03/20-hemoglobin today is slightly better than yesterday. She denied any more bleeding episodes. Gastroenterology is planning to do a colonoscopy today. Her Pap was almost complete and she is going to be taken this afternoon. Qualifiers: GI bleed type/associated pathology: unspecified gastrointestinal hemorrhage type Qualified Code(s): K92.2 - Gastrointestinal hemorrhage, unspecified (2) Delirium Current Visit: Yes Status: Acute Assessment and plan: Patient has sundowning episode yesterday. As per discussion with the family members it seems like she may have some degree of underlying dementia which is not diagnosed yet. Family tells me that she has been having short-term memory problems for the last 3 months and has had issues with her sleep-wake cycle as well as confusion more so in the evening time. I have instructed them that she will need to have a formal evaluation with her primary care physician and a outpatient geriatric/psych physician for further evaluation and diagnosis of dementia. She may very well have a underlying dementia diagnosis and this is delirium superimposed on dementia. For tonight I will give her some Seroquel on a when necessary basis so that she can have a better night's sleep. (3) Syncope Current Visit: Yes Status: Acute Assessment and plan: Likely vasovagal syncope. Patient with no prior cardiology workup in the past Obtain echocardiogram Obtain carotid Doppler ultrasound Place on telemetry Troponin negative, EKG unremarkable, no chest pain and head CT unremarkable 03/19-agree that most likely etiology being vasovagal syncope. If the above- mentioned workup is negative can DC telemetry. I will keep her on the telemetry at least and we are monitoring her H&H more consistently 03/20-no more syncopal episodes noted however she did have sundowning yesterday.. Qualifiers: Syncope type: unspecified Qualified Code(s): R55 - Syncope and collapse (4) Colitis Current Visit: Yes Status: Acute Assessment and plan: Patient with colitis Likely ischemic gearing age, presentation, and associated bleeding. Continue IV antibiotics Clear liquid diet only Consult gastroenterology -morning team to call. BUN/creatinine within normal limit Check lactate. 03/19 ruling out ischemic colitis. Colonoscopy tomorrow will follow results. Continue to maintain hydration. She appears euvolemic at this time. 03/20-concerning for ischemic colitis. Colonoscopy today and we will follow-up on the results. Maintain hydration. Blood pressure is stable (5) Hypertension Current Visit: Yes Status: Chronic Assessment and plan: Blood pressure currently acceptable for age. Resume home medications and continue to monitor carefully. Qualifiers: Hypertension type: essential hypertension Qualified Code(s): I10 - Essential (primary) hypertension (6) Diabetes mellitus Current Visit: Yes Status: Chronic Assessment and plan: Sliding-scale insulin only for now. Will hold whenever nothing by mouth. Continue serial Accu-Cheks Qualifiers: Diabetes mellitus type: type 2 Diabetes mellitus skiver heel tap insulin use: without skiver heel tap use Diabetes mellitus complication status: with neurologic complications Diabetes mellitus complication detail: with unspecified neuropathy Qualified Code(s): E11.40 - Type 2 diabetes mellitus with diabetic neuropathy, unspecified (7) DVT prophylaxis Current Visit: Yes Status: Acute Assessment and plan: SCDs due to GI bleed - Time Spent With Patient Total time spent is greater than 50% in coordination of care (as documented) at patient's floor/unit and/or counseling patient: Greater than 35 minutes (Majority of the care spent in discussion with family, consultants, nursing staff and coronary plan of care.) - Subjective Interval history: Patient has been compliant with her bowel prep overnight and her bowels are almost clear at this point. She did have significant sundowning episode last night and lots of confusion and into the history provided by her daughter the patient also has been having some memory issues and cognitive problems for the last 3 months with issues with confusion especially at sundowning. But last night was the worst sundowning episodes that she has had. This morning the patient is somewhat agreeable to undergoing the procedure and she is willing to complete the prep as well. She has not had more bleeding. - Constitutional Vitals: Temp Pulse Resp BP Pulse Ox 97.8 F 83 15 126/71 97 03/20/18 07:48 03/20/18 07:48 03/20/18 07:48 03/20/18 07:48 03/20/18 07:48 General appearance: Present: A&O X 3, pleasant, no acute distress Exam: GENERAL: Alert, no distress, oriented 1 EYES: PERRLA, EOMI EARS: External ears normal, canals clear OROPHARYNX: Lips, mucosa, and tongue normal. Teeth and gums normal. Oropharynx normal. NECK: No jugulovenous distention, No carotid bruits, Carotid pulse normal contour, Supple LUNGS: Lungs clear to auscultation, Good diaphragmatic excursion CARDIAC: Normal S1 and S2; no rubs, murmurs, or gallops ABDOMEN: Abdomen soft, non-tender, BS normal, No masses or organomegalyPULSES: 2 + radial, 2+ carotid Rest of the exam is non contributory Internal Medicine: Result - Labs CBC & Chem 7: 03/20/18 06:35 03/18/18 13:46 Labs: Short CBC 03/19/18 03/19/18 03/20/18 Range/Units 11:36 14:38 06:35 Hgb 13.9 12.9 15.7 H D (11.5-15.4) g/dL Hct 41.7 40.1 48.1 H (35.3-44.9) % Urine 03/19/18 Range/Units 15:00 Urine Color Yellow (Yellow) Urine Clarity Clear (Clear) Urine pH 7.0 (5.0-8.0) pH Units Ur Specific [place] 1.008 L (1.010-1.025) Urine Protein Negative (Neg-Trace) mg/dL Urine Glucose (UA) 250 H (Normal) mg/dL - ABG Interpretation ABG results: PT/INR, D-dimer PT 11.7 Seconds (9.4-12.1) 03/18/18 13:46 Consult Discharge Plan - Plan Referrals: Roro Reese, ACADEMIC SUPPORT COORDINATOR [Primary Care Provider] -
[2018-03-20] MEDS: Gabapentin 400 MG CAPSULE PO SCH ×2 (11:49→20:22)
[2018-03-20] MEDS ORDERED: *HR* Midazolam HCl 5 MG/5 ML VIAL IVP ONE ×2 (14:46→15:41)
[2018-03-20] MEDS ORDERED: *HR* FentaNYL (PF) 100 MCG/2 ML VIAL ONE (14:46)
[2018-03-20] MEDS ORDERED: *HR* FentaNYL (PF) 100 MCG/2 ML VIAL IVP ONE (15:41)
[2018-03-20] MEDS ORDERED: Tetracaine/Benzocaine/Butamben 200MG/SPRAY (100SPY/BOT) MM ONE (15:41)
[2018-03-20] MEDS: Insulin LISPRO 300 UNITS/3 ML VIAL SQ SCH ×2 (18:00→19:05)
[2018-03-21] MEDS: MetroNIDAZOLE 500 MG/100 ML 500 MG/100 ML BAG IVPB SCH ×2 (00:06→09:42)
[2018-03-21] MEDS: Insulin LISPRO 300 UNITS/3 ML VIAL SQ SCH ×3 (09:30→09:33)
[2018-03-21] MEDS: Gabapentin 400 MG CAPSULE PO SCH (09:42)
[2018-03-21 11:09] VITALS: BP 111/67
--- NOTE | 2018-03-21 11:45 | Discharge Summary ---
<Laurie Reed - Last Filed: 03/21/18 17:35> - NOTES TO OUTPATIENT PROVIDER Notes to Outpatient Provider: Ms. Logan is a 77 year old female who presented to the ED due to syncopal episode and bright red blood per rectum. CT head showed no acute findings. CT abdomen showed athlerosclerosis and wall thickening from transverse colon and desceding colong at the splenic flexure. She also received a colonoscopy which showed non bleeding internal hemorroids and non bleeding ulcers at splenic flexure, biopsy results pending. Her asprin has been removed for the next 5 days due to acute bleed. And amlodapine was stopped due to her stable to low blood pressure, you can restart it if needed. Orders not resulted at time of discharge: Pending orders 03/20/18 15:29 Surgical Pathology [PTH] Routine Date of Encounter: 03/21/18 Time of Encounter: 11:40 - Discharge Diagnosis (1) GI bleed Priority: Primary Status: Acute Assessment and Plan: Likely lower GI bleed, likely ischemic, rule out diverticular bleed. 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 She has now had multiple bright red blood per rectum stools. -Hemoglobin stayed stable -Colonoscopy showed uceratin 03/20-hemoglobin today is slightly better than yesterday. She denied any more bleeding episodes. Gastroenterology is planning to do a colonoscopy today. Her Pap was almost complete and she is going to be taken this afternoon. Qualifiers: GI bleed type/associated pathology: unspecified gastrointestinal hemorrhage type Qualified Code(s): K92.2 - Gastrointestinal hemorrhage, unspecified (2) Syncope Priority: Secondary Status: Acute Assessment and Plan: Likely vasovagal syncope vs. dehydration Patient with no prior cardiology workup in the past Obtain echocardiogram Carotid ultrasound showed severe stenosis of right and left ICA Will require surgical evaluation Was placed on telemetry Troponin negative, EKG unremarkable, no chest pain and head CT unremarkable CT abdomen showed ulcer at splenic flexure and thickening from transverse to sigmoid colon Hemoglobin stayed stable during admission During her admission, she had some episodes of Qualifiers: Syncope type: unspecified Qualified Code(s): R55 - Syncope and collapse (3) Colitis Priority: Secondary Status: Acute Assessment and Plan: Patient with colitis Likely ischemic gearing age, presentation, and associated bleeding. Continue IV antibiotics Clear liquid diet only Blood pressure remained stable No new episodes of bleeds Consulted gastroenterology . BUN/creatinine within normal limit Lactate within normal limits Colonoscopy showed some nonbleeding ulcer at splenic area and nonbleeding internal hemorrhoids (4) Hypertension Priority: Secondary Status: Chronic Assessment and Plan: Blood pressure currently acceptable for age. Resume home medications and continue to monitor carefully. Qualifiers: Hypertension type: essential hypertension Qualified Code(s): I10 - Essential (primary) hypertension (5) Diabetes mellitus Priority: Secondary Status: Chronic Assessment and Plan: Sliding-scale insulin during hospital stay. Will hold whenever nothing by mouth. Continue serial Accu-Cheks Qualifiers: Diabetes mellitus type: type 2 Diabetes mellitus prison insulin use: without train crew member use Diabetes mellitus complication status: with neurologic complications Diabetes mellitus complication detail: with unspecified neuropathy Qualified Code(s): E11.40 - Type 2 diabetes mellitus with diabetic neuropathy, unspecified (6) DVT prophylaxis Priority: Secondary Status: Acute Assessment and Plan: SCDs due to GI bleed (7) Delirium Priority: Secondary Status: Acute Assessment and Plan: Patient has sundowning episode yesterday. At admission there was a discussion with the family members it seems like she may have some degree of underlying dementia which is not diagnosed yet. Family tells me that she has been having short-term memory problems for the last 3 months and has had issues with her sleep-wake cycle as well as confusion more so in the evening time. -She will need formal evaluation with her primary care physician and a outpatient geriatric/psych physician for further evaluation and diagnosis of dementia. -She may very well have a underlying dementia diagnosis and this is delirium superimposed on dementia -New changed in her environment may have caused some delirium. Hospital course: Ms. Logan is a 77 year old female who presented to the ED due to syncopal episode and bright red blood per rectum. Her hemoccult was positive. In the ED she received a CT head and it showed no acute findings. Also, CT abdomen showed athlesclerosis and thickening from transverse colon to splenic flexure. She also received a colonoscopy which showed non-bleeding internal hemorrhoids and non-bleeding ulcers at splenic flexure,suspected ischemic colitis. She also had a carotid doppler done and showed severe stenosis at the right and left ICA. She needs a surgical evaluation outpatient. Her aspirin is held due to GI bleed and she can restart it in 5 days. Also, her amlodapine is held because her blood pressure was stable in the hospital. Discharge discussed with: patient - Time Spent with Patient Total time spent providing and/or coordinating discharge services: - Discharge Medications Home Medications: Atorvastatin [Lipitor] 10 mg PO HS 03/19/18 [History] Escitalopram [Lexapro] 10 mg PO DAILY 03/19/18 [History] Gabapentin [Neurontin] 400 mg PO BID 03/19/18 [History] HydrOXYzine 10 mg PO TID PRN 03/19/18 [History] Lisinopril 2.5 mg PO DAILY 03/19/18 [History] Metformin HCl 500 mg PO BID 03/19/18 [History] Allergies/Adverse Reactions: 3 Allergy/AdvReac Type Severity Reaction Status Date / Time No Known Allergies Allergy Verified 03/19/18 09:46 Date of admission: 03/18/18 19:36 Primary care physician: Roro Reese CNP Consults: 03/18/18 21:37 Consult to Gastroenterology [CONS] Routine Consulting Provider: Gastroenterology Yumi Reason for Consult: Lower GI bleed, Call Completed: No Discharging clinician: Laurie Reed Anticipated date of discharge: 03/21/18 - Constitutional Vitals: Temp Pulse Resp BP Pulse Ox 98.1 F 79 16 111/67 94 03/21/18 10:55 03/21/18 10:55 03/21/18 10:55 03/21/18 10:55 03/21/18 10:55 General appearance: Present: A&O X 3, pleasant, no acute distress - Head Head exam: Present: atraumatic, normocephalic - Eye Eye exam: Present: EOMI, sclera anicteric - ENT ENT exam: Present: mucous membranes moist - Neck Neck exam general surgery: Present: full ROM, trachea midline - Respiratory Respiratory exam: Present: CTAB. Absent: rhonchi, wheezes - Cardiovascular Cardiovascular exam: Absent: JVD, RRR - GI/Abdominal GI/Abdominal exam: Present: normal bowel sounds. Absent: firm, rigid, soft - Extremities Exam Extremities exam: Present: warm. Absent: full ROM, pedal edema, tenderness - Psychiatric Psychiatric exam: Present: normal affect - Skin Skin exam: Present: dry, erythema, warm. Absent: rash - Patient Status Disposition: Home, Self-Care Condition: Good Functional capacity at discharge: independent ambulation Overall status at discharge: patient is progressing back to baseline - Discharge Instructions Follow Up With: Roro Reese CNP [Primary Care Provider] - (Web Request was made, [facility] office should call with appointment date and time ) - Diet and Activity Activity: resume usual activities as tolerated Diet: diabetic diet, low fat, low cholesterol <Gavino Arboleda - Last Filed: 03/21/18 21:55> Orders not resulted at time of discharge: Pending orders 03/20/18 15:29 Surgical Pathology [PTH] Routine Date of Encounter: 03/21/18 - Discharge Diagnosis (1) GI bleed Status: Acute Qualifiers: GI bleed type/associated pathology: unspecified gastrointestinal hemorrhage type Qualified Code(s): K92.2 - Gastrointestinal hemorrhage, unspecified (2) Syncope Status: Acute Qualifiers: Syncope type: unspecified Qualified Code(s): R55 - Syncope and collapse (3) Colitis Status: Acute (4) Hypertension Status: Chronic Qualifiers: Hypertension type: essential hypertension Qualified Code(s): I10 - Essential (primary) hypertension (5) Diabetes mellitus Status: Chronic Qualifiers: Diabetes mellitus type: type 2 Diabetes mellitus prison insulin use: without prison use Diabetes mellitus complication status: with neurologic complications Diabetes mellitus complication detail: with unspecified neuropathy Qualified Code(s): E11.40 - Type 2 diabetes mellitus with diabetic neuropathy, unspecified (6) DVT prophylaxis Status: Acute (7) Delirium Status: Acute Hospital course: Ms. Logan is a 77 year old female - Time Spent with Patient Total time spent providing and/or coordinating discharge services: Date of admission: 03/18/18 19:36 Primary care physician: Roro Reese CNP Consults: 03/18/18 21:37 Consult to Gastroenterology [CONS] Routine Consulting Provider: Gastroenterology Yumi Reason for Consult: Lower GI bleed, Call Completed: No - Constitutional Vitals: Temp Pulse Resp BP Pulse Ox 98.1 F 79 16 111/67 94 03/21/18 10:55 03/21/18 10:55 03/21/18 10:55 03/21/18 10:55 03/21/18 10:55 - Attending Attestation I have examined the patient and reviewed the discharge summary obtained and documented by the resident and I personally participated in the chaves components. and formulation of the plan of care. I have discussed the case and management of the patient's care. 77 yo F who presented with BRBPR and clots - seen by GI and scoped to show Internal hemorrhoids and ulcers at Splenic flexure beleived to be ischmic in nature. We have held one of her BP meds and have asked the patient to hold ASA for atleast 5 days and then resume . She needs close followup with outpatient PCP and GI .ALso , per family , she has symptoms of cognitive decline occuring for past 3 months and progressively getting worse- she needs a full clint-psych eval for dementia. She did have delirium in house but was back to baseline at time of DC Rest of A/P per resident documentation
== END 2018-03-21 14:07 | disposition home or self-care (01) ==
LOC: 3ANU 13:15 → EMEROO 13:15 → SUATTDRO 19:36 → 3ANU 20:03
PROVIDERS: ADMIT Internal Medicine; ATTEND Internal Medicine
PROC: ENDOCBX (2018-03-20 15:10)

== ENCOUNTER 2018-06-14 10:54 | Inpatient (IN) ==
[2018-06-14] MEDS ORDERED: CeFAZolin Syr 2,000MG/20 ML 2,000 MG/20 ML SYRINGE IVPB ONE (11:16)
[2018-06-14] MEDS ORDERED: Ringers Solution, Lactated 1,000 ML IVC SCH (11:30)
--- NOTE | 2018-06-14 11:45 | Anesthesia Evaluation PreOp ---
Date of Encounter: 06/14/18 Time of Encounter: 11:40 - Past History Planned Operation: L carotid endarterectomy Cardiac History: HTN, Hyperlipidemia, Other (cardiac echo 70%, no ischemia) Pulmonary History: Denies Any Significant HX ENERGY BROKER History: Denies Any Significant HX Other Medical History: Denies Any Significant HX, Diabetes Type II (accu 112) Anesthesia History: No Prior Anesthetic Complications, Past Anesthesia Alcohol Use: none Drug use: none Medications and Allergies Atorvastatin [Lipitor] 10 mg PO HS 03/19/18 [History] Escitalopram [Lexapro] 10 mg PO DAILY 03/19/18 [History] Gabapentin [Neurontin] 400 mg PO BID 03/19/18 [History] HydrOXYzine 10 mg PO TID PRN 03/19/18 [History] Lisinopril 2.5 mg PO DAILY 03/19/18 [History] Metformin HCl 500 mg PO BID 03/19/18 [History] 3 Allergy/AdvReac Type Severity Reaction Status Date / Time No Known Allergies Allergy Verified 03/19/18 09:46 - Meds/Allergy Pre-op Review Medications Reviewed: Yes Allergies Reviewed: Yes Beta Blockers on Current Med List: No Anesthesia Results - Imaging EKG: report reviewed (sinus rhythm) Anesthesia Exam Selected Entries 06/14/18 11:26 Temperature 98.0 F Pulse Rate 77 Pulse Strength Normal Respiratory Rate 18 Blood Pressure 134/77 O2 Sat by Pulse Oximetry 98 Weight: 59 kg NPO (# of Hours): over 8 hours - HEENT Pupil (Motor): Pupils equal Mallampati: I Teeth: Edentulous Oral Opening: Greater than 3 - Cardiac Rhythm: Regular Murmur: None - Pulmonary Breath Sounds: bilateral Clear Respiratory Effort: Symmetrical Anesthesia Assess/Plan ASA Score: 2 Modified Pemberton Scale for Level of Consciousness: Cooperative, oriented, and tranquil Anesthetic Plan: General Monitoring Plan: Standard Monitors, A-Line Recovery Plan: PACU (Discussed GA, art. line, agreed to proceed.)
[2018-06-14] MEDS ORDERED: Heparin 1,000 UNITS/500 mL 0 ML ONE (11:52)
--- NOTE | 2018-06-14 11:56 | History & Physical Report ---
Date of Encounter: 06/14/18 Time of Encounter: 11:50 24 Hour HP Update - Instructions Instructions: If the History and Physical is less than 30 days old and was completed prior to A.M. admission and or procedure and has NOT been updated on calendar day of procedure please complete this update prior to performing procedure. - Update Patient reports changes in Medical Condition: No Changes in examination, assessment, or condition: No Changes in Medication: No Preop tests/diagnostics Reviewed: Yes Surgery Remains Indicated: Yes Consent for Planned Operative Procedure(s) Verified: Yes - Pre-Operative Checklist Preoperative Checklist Indicated: Yes Prophylactic Antibiotic Ordered: Yes (Vancomycin due to MRSA risk) Home Medications Include Beta Mary: No Beta Mary Taken Today (Day of Surgery): No Beta Mary Taken Yesterday (Day Prior to Surgery): No Is VTE Prophylaxis Indicated?: Yes
[2018-06-14] MEDS ORDERED: Heparin 1,000 UNITS/500 mL 1,500 ML ONE (11:57)
[2018-06-14] MEDS ORDERED: Bupivacaine-MPF 0.25% 10 ML VIAL ONE (11:58)
[2018-06-14] MEDS ORDERED: *HR* Phenylephrine 10 MG/ML VIAL ONE (11:58)
[2018-06-14] MEDS ORDERED: Protamine Sulfate 50 MG/5 ML VIAL IVP ONE (11:58)
[2018-06-14] MEDS ORDERED: *HR* Labetalol 20 MG/4 ML SYRINGE IVP ONE (12:29)
[2018-06-14] MEDS ORDERED: Vancomycin 1,000 MG, Sodium Chloride IRRigation 1,000 ML IR ONE (12:40)
[2018-06-14] MEDS ORDERED: Ondansetron 4 MG/2 ML VIAL IVP ONE (13:24)
[2018-06-14] MEDS ORDERED: *HR* Labetalol 20 MG/4 ML SYRINGE IVP PRN ×2 (13:24→16:03)
[2018-06-14] MEDS ORDERED: MORPHINE SUL Oral CONC 10 MG/0.5 ML ORAL.SYG SL PRN (13:24)
[2018-06-14] MEDS ORDERED: *HR* Promethazine 25 MG/ML VIAL IVP PRN (13:24)
[2018-06-14] MEDS ORDERED: *HR* HYDROmorphone (PF) 1 MG/ML SYRINGE IVP PRN (13:24)
[2018-06-14] MEDS ORDERED: *HR* OxyCODONE Immed Rel 5 MG TABLET PO PRN ×2 (13:24→16:03)
--- NOTE | 2018-06-14 13:24 | Anesthesia Procedures ---
Date of Encounter: 06/14/18 Time of Encounter: 12:15 Procedures: Anesthesia - Arterial Line Consent obtained: written consent Time out performed: Yes Sedation: Versed (mg): 2 Sedation: Fentanyl (mcg): 50 Supplemental Oxygen via Nasal Cannula (L/min): 2 Local Anesthetic: Lidocaine 1% Amount of Anesthetic used (mls): 1 Size (Gauge): 20 Length (inches): 1 3/4 Technique Used: sterile prep, guide wire technique Post-Procedure: line taped into place, dry sterile dressing placed Patient tolerated procedure: well Complications: none Site: Radial R
[2018-06-14] MEDS ORDERED: *HR* Metoprolol 5 MG/5 ML VIAL IVP ONE (14:48)
[2018-06-14] MEDS ORDERED: Ondansetron 4 MG/2 ML VIAL ONE (15:00)
[2018-06-14] MEDS ORDERED: Lidocaine -MPF 2% 2 ML VIAL ONE (15:00)
[2018-06-14] MEDS ORDERED: *HR* Rocuronium Bromide 50 MG/5 ML VIAL ONE (15:00)
[2018-06-14] MEDS ORDERED: *HR* Midazolam HCl 2 MG/2 ML VIAL ONE (15:00)
[2018-06-14] MEDS ORDERED: *HR* FentaNYL (PF) 100 MCG/2 ML VIAL ONE (15:00)
[2018-06-14] MEDS ORDERED: *HR* Propofol 200 MG/20 ML VIAL IVP ONE (15:00)
[2018-06-14] MEDS ORDERED: Dexamethasone 4 MG/ML VIAL ONE (15:00)
[2018-06-14] MEDS ORDERED: *HR* Remifentanil 2 MG VIAL IVP ONE (15:00)
[2018-06-14] MEDS ORDERED: Lidocaine -MPF 4% 5 ML AMPUL ONE (15:00)
--- NOTE | 2018-06-14 15:00 | Operative Note ---
Date of procedure: 06/14/18 Pre-op diagnosis: 80-99% left internal carotid artery stenosis Post-op diagnosis: same Procedure: Left carotid endarterectomy with Hemashield patch angioplasty. Complications: None Anesthesia: GETA Surgeon: Gokul Christianson Was there an assistant professor of biochemistry present: No Estimated blood loss (cc): 50 Specimen: Left carotid plaque Condition: stable Disposition: PACU Procedure in Detail: Indications: The patient is a 77-year-old female who was found have an 80-99% left internal carotid artery stenosis. A left carotid endarterectomy was recommended to reduce her risk of stroke. Procedure: The patient was identified in the preoperative area. The risks, benefits, and alternatives of the procedure were discussed and all questions were answered. The patient was then taken to the operating room and placed in supine position on the operating table. After the induction of general endotracheal anesthesia, the patient was cleaned and draped in normal sterile fashion. A longitudinal incision was made anterior to the left sternocleidomastoid muscle. Hemostasis was obtained via electrocautery. Through a process of blunt , sharp, and electrocautery dissection, the platysma was incised with electrocautery. The jugular vein was identified. The facial vein was dissected proximally. The vesel was then ligtated with 2-0 silk suture and divided. The jugular vein was then retracted to expose the carotid bifurcation. The patient received 3000 units of heparin intravenously at this time. Proximal dissection of the common and external carotid arteries were performed circumferentially. Dissection of the internal carotid was performed circumferentially. Vessels loops were passed around the internal and external carotid and an umbilical tape was passed from the common carotid artery. The patient received additional 2000 units of heparin intravenously. After waiting adequate time for the heparin to circulate, the vessels were occluded and a longitudinal arteriotomy was made into the common carotid artery and extended into the internal carotid beyond the plaque. The plaque was long, extended distally and was heavily calcified. Vigorous pulsatile retrograde flow was noted from the internal carotid artery upon release of the vessel loop. Rapid pulsatile retrograde flow was consistent with significant retrograde perfusion. Given this finding patient was not required.. A dental [place] was used to perform a standard endarterectomy. Proximal and distal endpoints were inspected an no elevated flaps were noted. A Hemashield patch was cut to fit the defect and sutured in place with running 6 -0 Prolene. Prior to completing the closure, each vessel was flushed and then reoccluded. Heparinized saline was infused into the lumen. The patch was completed. Flow was restored in the external carotid artery, followed the common carotid artery, lastly the internal carotid artery was opened. A low resistance arterialized signal was present within the internal carotid artery beyond the patch. Thrombin and Gelfoam were used to aid in hemostasis. Meticulous hemostasis was obtained throughout the wound with electrocautery. Platelet rich and platelet poor plasma were infused into the wounds. The sternocleidomastoid was reapproximated with interrupted 3-0 Vicryl. Platelet rich and platelet poor plasma were infused into the wound. A TLS drain was brought through a separate stab incision and sutured in place with 0 silk suture. The platysma was reapproximated with running 3-0 Vicryl. Local anesthetic was infused in the skin. A 3-0 Monocryl was used to reapproximate the skin. A sterile dressing was applied. The patient was extubated, taken to the recovery room in stable condition.
--- NOTE | 2018-06-14 15:15 | Anesthesia Evaluation Post Op ---
Date of Encounter: 06/14/18 Time of Encounter: 15:15 - Vital Signs Vital Signs: Selected Entries 06/14/18 14:52 Temperature 98.8 F Pulse Rate 100 Respiratory Rate 14 Blood Pressure 121/54 O2 Sat by Pulse Oximetry 100 - Lungs Lungs: Clear Ascult./Percussion - Airway Airway: Non-obstructed - Cardiovascular Regular Rate - Nausea Vomiting Nausea Vomiting: Not Present - Hydration Hydration: NPO, Galindo catheter - Discharge PostOp Status: Transfer Patient to floor (Arterial line to be discontinued, patient awake and alert, no deficits.)
[2018-06-14] MEDS ORDERED: Dextrose Gel 15 GM/37.5 ML TUBE PO PRN ×2 (16:03)
[2018-06-14] MEDS ORDERED: 0.9 % Sodium Chloride 1,000 ML IVC SCH (16:03)
[2018-06-14] MEDS ORDERED: Naloxone 0.4 MG/ML INJ IVP PRN (16:03)
[2018-06-14] MEDS ORDERED: OXYCODONE Oral CONC 10 MG/0.5 ML ORAL.SYG SL PRN ×2 (16:03)
[2018-06-14] MEDS ORDERED: D5% in Water 1,000 ML IVC PRN (16:03)
[2018-06-14] MEDS ORDERED: *HR* Dextrose 50 % in Water (Syg) 50 ML SYRINGE IVP PRN (16:03)
[2018-06-14] MEDS ORDERED: Acetaminophen 325 MG TABLET PO PRN (16:03)
[2018-06-14] MEDS ORDERED: Ondansetron 4 MG/2 ML VIAL IVP PRN (16:03)
[2018-06-14] MEDS: *HR* HYDROcodone/Acet 5/325 mg TABLET PO PRN (17:17)
[2018-06-14] MEDS: Insulin LISPRO 300 UNITS/3 ML VIAL SQ SCH (17:18)
[2018-06-14] MEDS: *HR* Metoprolol 5 MG/5 ML VIAL IVP SCH ×2 (17:18→22:30)
[2018-06-14] MEDS ORDERED: Cholecalciferol (D-3) 1,000 UNIT TABLET PO SCH (18:00)
[2018-06-14] MEDS: Gabapentin 400 MG CAPSULE PO SCH (20:19)
[2018-06-14] MEDS ORDERED: Insulin LISPRO 300 UNITS/3 ML VIAL SQ SCH (21:00)
[2018-06-14] MEDS ORDERED: Vancomycin 1,000 MG in D5% in Water 250 ML IVPB ONE ×2 (23:00)
[2018-06-15] MEDS: *HR* Metoprolol 5 MG/5 ML VIAL IVP SCH (05:18)
[2018-06-15] MEDS: *HR* HYDROcodone/Acet 5/325 mg TABLET PO PRN (05:22)
[2018-06-15] MEDS ORDERED: *HR* Heparin 5,000 UNIT/ML VIAL SQ SCH (06:00)
--- NOTE | 2018-06-15 07:08 | Discharge Summary ---
Date of Encounter: 06/15/18 Time of Encounter: 08:05 - Discharge Diagnosis (1) Carotid stenosis, bilateral Priority: Primary Status: Chronic Comments: The patient is postoperative day 1 after a left carotid endarterectomy. Her incision is healing well. She has no hematoma. She has no neurologic deficits. She is tolerating a diet. She will be discharged today. 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 Logan is a 77 year old female with a history of hypertension, hyperlipidemia and diabetes. The patient was found have a patent carotid stenosis. She was admitted to [facility] on 06/14/2018. She was taken operating room where she underwent a left carotid endarterectomy. She tolerated the procedure well and was discharged home in stable condition on postoperative day #1 without complications. - Time Spent with Patient Total time spent providing and/or coordinating discharge services: - Discharge Medications Prescriptions: HYDROcodone/Acet 5/325 mg [[place] 5-325 mg] 1 tab PO Q6HR PRN 4 Days #16 tablet PRN Reason: Postoperative pain Home Medications: Atorvastatin [Lipitor] 10 mg PO HS 03/19/18 [History] Gabapentin [Neurontin] 400 mg PO BID 03/19/18 [History] Lisinopril 2.5 mg PO DAILY 03/19/18 [History] Aspirin [Lo-Dose Aspirin EC] 81 mg PO DAILY 06/14/18 [History] Cholecalciferol (D-3) [Vitamin D] 3,000 unit PO QPM 06/14/18 [History] Metformin HCl 500 mg PO BID 06/14/18 [History] PARoxetine HCl [Paroxetine HCl] 20 mg PO DAILY 06/14/18 [History] HYDROcodone/Acet 5/325 mg [[place] 5-325 mg] 1 tab PO Q6HR PRN 4 Days #16 tablet 06/15/18 [Rx] Allergies/Adverse Reactions: 3 Allergy/AdvReac Type Severity Reaction Status Date / Time No Known Allergies Allergy Verified 06/14/18 11:48 Date of admission: 06/14/18 16:01 Primary care physician: Roro Reese CNP Procedure(s) Performed: Left carotid endarterectomy Discharging clinician: Gokul Christianson Anticipated date of discharge: 06/15/18 Exam Vital Signs, Last 4 Hours Temp Pulse Resp BP Pulse Ox 06/15/18 03:58 97.7 F 65 18 112/87 95 General: Present: Conversant, No Apparent Distress HEENT: Present: Trachea midline, Pupils equal Neck: Present: Other (Incision clean, dry and intact without erythema or drainage.) Cardiac: Present: Reg Rate and Rhythm Lungs: Present: Normal Breath Sounds Neuro: Present: Alert and responsive, Motor nerves grossly intact, Sensory nerves grossly intact Abdomen: Present: Soft Vascular: Present: Normal capillary refill, Pulse, normal. Absent: Cyanosis, Edema Skin: Present: No rashes noted on visualized skin - Patient Status Disposition: Home, Self-Care Condition: Good Functional capacity at discharge: independent ambulation Overall status at discharge: patient is back to baseline - Discharge Instructions Instructions: Carotid Endarterectomy (DC), Peripheral Vascular Disorders (DC) Follow Up With: Gokul Christianson MD [Partnered Physician] - 07/09/18 1:00 pm Roro Reese CNP [Primary Care Provider] - 06/20/18 11:00 am Additional Instructions: May remove bandage and shower on 06/16/2018. Wash wound gently and pat to dry. No driving for [address] Christianson at [phone] with questions or concerns. - Diet and Activity Activity: increase activity as tolerated Diet: advance to your usual diet
[2018-06-15] MEDS: Insulin LISPRO 300 UNITS/3 ML VIAL SQ SCH (07:28)
[2018-06-15] MEDS: Gabapentin 400 MG CAPSULE PO SCH (07:37)
[2018-06-15] MEDS ORDERED: Aspirin Enteric Coated 81 MG Tablet PO SCH (09:00)
[2018-06-15 11:18] VITALS: BP 112/42
== END 2018-06-15 11:53 | disposition home or self-care (01) | DRG 39 ==
LOC: SAMDAY 10:54 → 2NNU 16:01
PROVIDERS: ADMIT Surgery; ATTEND Surgery